=== PATIENT | male | born 1950 | race Caucasian/White ===

== ENCOUNTER 2017-10-27 11:45 | Inpatient (IN) | payer MEDICARE, MEDICAID ==
[~2017-10-27] VITALS: Ht 172.7 cm; Wt 112.0 kg
[~2017-10-27 11:45] MED LIST: ALBU2.5V38 IH; ASCO500T9 PO; BISA10SU12 RC; BRIM5DRO3 EACHEYE; BUME1TAB4 PO; DOCU-141 PO; FERR220S2 PO; FOLI1TAB16 PO; GUAI118S11 PO; HYDR-548 PO; IPRA0.2S6 NEB; LACT10SO7 PO; LEVO500T2 PO; MAGN355O3 PO; MAGN400O6 PO; METO25TA6 PO; MULT1TAB11 PO; NA P133E RC; NITR0.4T SL; NUTR1PAC14 PO; OMEP20TA20 PO; OXYC40TA34 PO; PEG15DRO5 EACHEYE; SPIR50TA PO; THIA100T13 PO; TIMO5DRO18 EACHEYE; VITA42.5 TP; WARF4TAB41 PO; ZINC220T PO; [UNRECOGNIZED DRUG - CODE] PO; [UNRECOGNIZED DRUG - OTHER] MC
[2017-10-27] MEDS ORDERED: IV NORMAL SALINE 1000 ML BAG IV ONE (12:00)
--- NOTE | 2017-10-27 12:30 | NUR ---
Pt out of ER for CT.
[2017-10-27 12:45] LABS: BASOPHILS # (AUTO) 0.1 K/uL (0.0-8.0); BASOPHILS % (AUTO) 0.8 % (0.0-2.0); EOSINOPHILS % (AUTO) 7.1 % (0.0-7.0); HEMATOCRIT 29.5 % (36.7-47.1); HEMOGLOBIN 8.7 g/dL (12.5-16.3); LYMPHOCYTES # (AUTO) 1.5 K/uL (20.0-40.0); LYMPHOCYTES % (AUTO) 11.1 % (20.5-51.5); MEAN CORPUSCULAR HEMOGLOBIN 21.7 uug (23.8-33.4); MEAN CORPUSCULAR HGB CONC 29 g/dL (32.5-36.3); MEAN CORPUSCULAR VOLUME 74.2 fL (73.0-96.2); MONOCYTES # (AUTO) 1.5 K/uL (2.0-10.0); MONOCYTES % (AUTO) 10.9 % (0.0-11.0); NEUTROPHILS # (AUTO) 9.4 K/uL (1.8-8.9); NEUTROPHILS % (AUTO) 70.1 % (38.5-71.5); PLATELET COUNT (AUTO) 572 K/uL (152-348); RED BLOOD CELL COUNT(AUTO) 3.98 MIL/uL (4.06-5.63); WHITE BLOOD COUNT (AUTO) 13.5 K/uL (3.6-10.2)
[2017-10-27 12:47] LABS: ETHANOL < 3 MG/DL (0-0)
[2017-10-27 13:00] LABS: CARBON DIOXIDE 34 mmol/L (21-32); CHLORIDE 99 mmol/L (98-107); CREATININE 0.5 mg/dL (0.6-1.3); GLUCOSE 156 mg/dL (74-106); POTASSIUM 3.6 mmol/L (3.5-5.1); UREA NITROGEN, BLOOD 10 mg/dL (7-18)
[2017-10-27 13:02] LABS: BASOPHILS % (MANUAL) 2 % (0-2); EOSINOPHILS % (MANUAL) 8 % (0-8); LYMPHOCYTES % (MANUAL) 13 % (20-40); MONOCYTES % (MANUAL) 10 % (2-10); NEUTROPHILS % (MANUAL) 67 % (42-75)
[2017-10-27 13:04] LABS: ALANINE AMINOTRANSFERASE 20 U/L (16-63); ALKALINE PHOSPHATASE 75 U/L (50-136); ASPARTATE AMINOTRANSFERASE 9 U/L (15-37); BILIRUBIN,DIRECT 0.1 mg/dL (0.0-0.2); BILIRUBIN,TOTAL 0.4 mg/dL (0.2-1.0); TOTAL PROTEIN, SERUM 7.7 g/dL (6.4-8.2)
[2017-10-27 13:05] LABS: ACETAMINOPHEN < 2.0 ug/mL (10-30)
--- NOTE | 2017-10-27 13:33 | NUR ---
Per Dr Hunter pt will be admitted to Dr Guadalupe.
[2017-10-27] MEDS ORDERED: BLOO-140 IN (13:38)
[2017-10-27] MEDS ORDERED: IPRA3AMP IH (13:38)
[2017-10-27] MEDS ORDERED: METF500T6 PO (13:38)
[2017-10-27] MEDS ORDERED: GABA-534 PO (13:38)
[2017-10-27] MEDS ORDERED: DOCU-141 PO (13:38)
[2017-10-27] MEDS ORDERED: MAGN400O6 PO (13:38)
[2017-10-27] MEDS ORDERED: PRED10TA PO (13:38)
[2017-10-27] MEDS ORDERED: ENOX40DI SQ (13:38)
[2017-10-27] MEDS ORDERED: BUDE0.5A4 IH (13:38)
[2017-10-27] MEDS ORDERED: LACT10SO PO (13:38)
[2017-10-27] MEDS ORDERED: PANT40TA4 PO (13:38)
[2017-10-27] MEDS ORDERED: INSU100V10 SQ (13:38)
[2017-10-27] MEDS ORDERED: MINE133E RC (13:38)
[2017-10-27] MEDS ORDERED: SUCR1ORA PO (13:38)
[2017-10-27] MEDS ORDERED: SOTA80TA PO (13:38)
[2017-10-27] MEDS ORDERED: OXYC-133 PO (13:38)
[2017-10-27] MEDS ORDERED: ACET325T53 PO (13:38)
[2017-10-27] MEDS ORDERED: OXYC40TA50 PO (13:38)
[2017-10-27] MEDS ORDERED: CLON1TAB4 PO (13:38)
[2017-10-27] MEDS ORDERED: MULT-213 PO (13:38)
[2017-10-27] MEDS ORDERED: LORA-259 PO (13:38)
[2017-10-27] MEDS ORDERED: FERR325T28 PO (13:38)
[2017-10-27] MEDS ORDERED: CHOL20004 PO (13:38)
--- NOTE | 2017-10-27 14:20 | NUR ---
aware of pt's arrival to the med-surg/tele floor. Tele monitor placed on the pt. O2 via NC. Pictures of lower extremities take. Body assessment done.
[2017-10-27 15:15] VITALS: BP 137/65
--- NOTE | 2017-10-27 15:15 | NUR ---
received pt via pia accompanied by one ER nurse. Pt is under no immediate s/s of SOB, pain, distress or discomfort. Pt is note to be mumbling and asking about whether he has pneumonia or not.
--- NOTE | 2017-10-27 15:15 | NUR ---
Pt. admitted to TELE , under care of ASSEMBLER BILLIARD TABLE MONICA Belongs List completed
[2017-10-27] MEDS ORDERED: ONDANSETRON 4 MG/2 ML VIAL IV PRN (16:45)
[2017-10-27] MEDS ORDERED: Z GUARD REMEDY PASTE 57 GM TUBE TOP PRN (16:45)
[2017-10-27] MEDS ORDERED: BISACODYL 10 MG SUPP.RECT RC PRN (16:45)
[2017-10-27] MEDS ORDERED: DEXTROSE 50% 50 ML DISP.SYRIN IV PRN (16:45)
[2017-10-27] MEDS: FERROUS SULFATE 325 MG TABEC PO SCH (17:00)
[2017-10-27] MEDS ORDERED: BRIMONIDINE-P 0.1% OPHTH DROP 5 ML DROPS EACHEYE SCH (17:00)
[2017-10-27] MEDS: BRIMONIDINE 0.2% OPHT DROP 10 ML BOTTLE EACHEYE SCH (17:30)
--- NOTE | 2017-10-27 17:30 | NUR ---
Pt refused to take take his iron, Metformin and eye drops. Pt states he is not diabetic. Pt requested OxyContin 40mg, lactulose and 2 Colace. aware, OxyContin is on hold as of right now. 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 Addendum: 10/27/17 at 1999 by KATHE KELLY RN Pt started to yell at me after telling him the his OxyContin is not authorized as of right now
[2017-10-27] MEDS: DOCUSATE SODIUM 100 MG CAPSULE PO SCH (17:38)
[2017-10-27] MEDS: GABAPENTIN 300 MG CAPSULE PO SCH (17:39)
[2017-10-27] MEDS: CLONAZEPAM 1 MG TABLET PO SCH (17:39)
[2017-10-27] MEDS: METFORMIN HCL 500 MG TABLET PO SCH (18:00)
--- NOTE | 2017-10-27 19:30 | NUR ---
Pt refused his dinner. Pt is sleeping upright with no immediate s/s of SOB, pain, distress or discomfort
[2017-10-27 19:43] VITALS: BP 152/59
[2017-10-27] MEDS: IV NS 1000 ML 1,000 ML IV PRN (20:33)
[2017-10-27] MEDS ORDERED: VANCOMYCIN IV 1 G in PREMIXED 0 EACH IV ONE (20:45)
[2017-10-27] MEDS ORDERED: HYDROCODONE/APAP 10-325 MG TABLET PO PRN (20:45)
[2017-10-27] MEDS ORDERED: CEFTRIAXONE 1 G VIAL IV SCH (20:45)
--- NOTE | 2017-10-27 20:54 | NUR ---
Received patient in bed pleasantly confused no SOB c/o gen pain. Patient is warm to touch, febrile w/ temp 100.1 F. Called & notified [facility] MD on-call, Dr. Sam Bravo. Orders received & carried out. Repeat blood culture x 2 was ordered. Vancomycin & Rocephin IV antibiotic to be infused once available.
[2017-10-27] MEDS ORDERED: INSULIN DETEMIR 300 UNIT/3 ML CARTRIDGE SQ SCH (21:00)
[2017-10-27] MEDS: LACTULOSE 20 G/30 ML LIQUID UDC PO SCH (21:05)
[2017-10-27] MEDS: BLOOD SUGAR DIAGNOSTIC 1 EACH STRIP VI SCH (21:12)
[2017-10-27] MEDS: INSULIN GLARGINE,HUM 300 UNITS/3 ML CARTRIDGE SQ SCH (21:14)
[2017-10-27] MEDS: BUDESONIDE 0.5 MG/2 ML NEBU IH SCH (21:15)
[2017-10-27] MEDS: ENOXAPARIN SODIUM 40 MG/0.4 ML DISP.SYRIN SQ SCH (21:16)
--- NOTE | 2017-10-27 21:21 | NUR ---
Awaiting for blood culture to be done, patient is hard stick.
[2017-10-27] MEDS ORDERED: BUDESONIDE 0.5 MG/2 ML NEBU ONE (22:06)
[2017-10-27] MEDS: CEFTRIAXONE 1 G in IV DEXTROSE 5% 50 ML IV SCH (22:19)
--- NOTE | 2017-10-27 22:30 | NUR ---
IVF NS at 75 ml/hr started as ordered. Right wrist heplock patent no sign of infiltration. Noted distended bladder, patient awake at this time & agitated. Instructed to urinate, patient voided 600 ml. Jaqui-anal care provided & repositioned in bed. Urine sample sent to the lab for UA C&S. Blood culture x 2 done. Tylenol 650 mg po given for fever. Obion tablet not administered, patient spit it out. Patient stated he takes Oxycontin 40 mg po every 6 hrs PRN and Percocet tab every 4 hrs PRN. Paged MD configuration management analyst for patient's preferred pain meds. Sinus tach on the monitor HR 106.
[2017-10-27 23:11] LABS: *BLOOD, URINE NEGATIVE (NEGATIVE); *CLARITY,URINE CLEAR (CLEAR); *COLOR,URINE YELLOW (YELLOW); *KETONES,URINE 4+ (NEGATIVE); *PROTEIN,URINE NEGATIVE (NEGATIVE); *UROBILINOGEN,URINE 0.2 E.U./dl (NORMAL); LEUKOCYTE ESTERASE ,URINE NEGATIVE (NEGATIVE); NITRITE, URINE NEGATIVE (NEGATIVE); UGLUCOSE NEGATIVE (NEGATIVE)
[2017-10-27 23:19] LABS: *BILIRUBIN,URIN 1+ (NEGATIVE)
--- NOTE | 2017-10-27 23:20 | NUR ---
Rocephin 1 gm & Vancomycin completed, patient tolerated.
[2017-10-27 23:24] LABS: BACTERIA,URINE NONE SEEN /HPF (NONE SEEN); COARSE GRANULAR CASTS,URINE 0-3 /LPF; MUCUS,URINE FEW /LPF (0-FEW); RBC,URINE 0-3 /HPF (0-3); SQUAMOUS EPITHELIAL CELL,UR FEW /HPF (NONE SEEN)
[2017-10-27 23:28] LABS: *AMPHETAMINE, URINE NEGATIVE (NEGATIVE); *BARBITURATE, URINE NEGATIVE (NEGATIVE); *CANNABINOID, URINE NEGATIVE (NEGATIVE); *COCCAINE, URINE NEGATIVE (NEGATIVE); *OPIATE, URINE POSITIVE (NEGATIVE); *PHENCYCLIDINE SCREEN,URINE NEGATIVE (NEGATIVE)
--- NOTE | 2017-10-28 01:00 | NUR ---
Resting comfortably, arousable, easily get upset to staff & verbally abusive. Sinus tach w/ PACs on the monitor. Kept bilateral leg elevated on a pillow.
[2017-10-28 03:42] VITALS: BP 126/65
--- NOTE | 2017-10-28 03:44 | NUR ---
Fully awake alert & oriented, patient demanding his Oxycontin & Percocet pain pill. Patient continuos to refuse [place] pain medication. Explained to patient that those meds were temporarily held by . Patient is verbally abusive threatens the staff that he wont stop screaming until he gets his Oxycontin. Tele sinus rhythm 90s w/ PACs. Paged EPIC cook mayonnaise for orders.
[2017-10-28] MEDS ORDERED: OXYCODONE HCL 40 MG TAB.SR.12H PO SCH (04:00)
--- NOTE | 2017-10-28 04:05 | NUR ---
DR ROLLY SALAS MD MEDICATION SPECIALIST CALLED BACK. RECEIVED ORDERS, TO RESUME BACK OXYCONTIN 40 MG Q12H PRN AND PERCOCET 10/325MG Q6H PRN. READ BACK AND VERIFIED ORDERS.
[2017-10-28] MEDS: PANTOPRAZOLE SODIUM 40 MG TABLET.DR PO SCH (06:28)
[2017-10-28] MEDS: BLOOD SUGAR DIAGNOSTIC 1 EACH STRIP VI SCH ×4 (07:08→21:57)
--- NOTE | 2017-10-28 07:20 | NUR ---
patient alert and awake, no sob, denies chest pain. on tele sinus rhythm with PACs, HR of 94. safety measures maintained at all times.
[2017-10-28] MEDS: INSULIN REGULAR, HUMAN 300 UNIT/3 ML VIAL SQ SCH ×3 (07:30→16:13)
[2017-10-28] MEDS: BUDESONIDE 0.5 MG/2 ML NEBU IH SCH ×3 (07:30→19:22)
[2017-10-28] MEDS ORDERED: INSULIN LISPRO 1000 UNITS/10 ML VIAL(HUMALOG) SQ SCH (07:30)
[2017-10-28 07:54] LABS: BASOPHILS # (AUTO) 0.2 K/uL (0.0-8.0); BASOPHILS % (AUTO) 2.2 % (0.0-2.0); EOSINOPHILS # (AUTO) 1.1 K/uL (0.0-0.7); EOSINOPHILS % (AUTO) 11.3 % (0.0-7.0); HEMOGLOBIN 7.7 g/dL (12.5-16.3); LYMPHOCYTES # (AUTO) 1.5 K/uL (20.0-40.0); MEAN CORPUSCULAR HEMOGLOBIN 22.4 uug (23.8-33.4); MEAN CORPUSCULAR HGB CONC 31 g/dL (32.5-36.3); MEAN CORPUSCULAR VOLUME 72.3 fL (73.0-96.2); MONOCYTES # (AUTO) 1.1 K/uL (2.0-10.0); MONOCYTES % (AUTO) 11.1 % (0.0-11.0); NEUTROPHILS # (AUTO) 5.9 K/uL (1.8-8.9); NEUTROPHILS % (AUTO) 60.4 % (38.5-71.5); PLATELET COUNT (AUTO) 575 K/uL (152-348); RED BLOOD CELL COUNT(AUTO) 3.45 MIL/uL (4.06-5.63); WHITE BLOOD COUNT (AUTO) 9.8 K/uL (3.6-10.2)
[2017-10-28] MEDS: METFORMIN HCL 500 MG TABLET PO SCH ×3 (08:00→17:04)
[2017-10-28 08:27] LABS: ALANINE AMINOTRANSFERASE 16 U/L (16-63); ALKALINE PHOSPHATASE 62 U/L (50-136); ASPARTATE AMINOTRANSFERASE 7 U/L (15-37); BILIRUBIN,TOTAL 0.4 mg/dL (0.2-1.0); CARBON DIOXIDE 34 mmol/L (21-32); CHLORIDE 102 mmol/L (98-107); CHOLESTEROL 151 mg/dL (<200); CREATININE 0.4 mg/dL (0.6-1.3); GLUCOSE 119 mg/dL (74-106); HDL CHOLESTEROL 48 mg/dL (40-60); MAGNESIUM 1.6 mg/dL (1.8-2.4); PHOSPHOROUS 3.2 mg/dL (2.5-4.9); POTASSIUM 3.4 mmol/L (3.5-5.1); TOTAL PROTEIN, SERUM 6.3 g/dL (6.4-8.2); TRIGLYCERIDES 136 MG/DL (30-150); UREA NITROGEN, BLOOD 7 mg/dL (7-18)
[2017-10-28 08:34] LABS: THYROID STIMULATING HORMONE 1.135 mIU/mL (0.358-3.740)
[2017-10-28] MEDS: GABAPENTIN 300 MG CAPSULE PO SCH ×2 (08:38→16:18)
[2017-10-28] MEDS: DOCUSATE SODIUM 100 MG CAPSULE PO SCH ×2 (08:39→16:17)
[2017-10-28] MEDS: FERROUS SULFATE 325 MG TABEC PO SCH ×3 (08:39→16:13)
[2017-10-28] MEDS: predniSONE 10 MG TABLET PO SCH (08:40)
[2017-10-28] MEDS: SOTALOL HCL 80 MG TABLET PO SCH (08:40)
[2017-10-28] MEDS: CLONAZEPAM 1 MG TABLET PO SCH ×2 (08:40→16:18)
[2017-10-28] MEDS: LACTULOSE 20 G/30 ML LIQUID UDC PO SCH ×2 (08:41→21:00)
[2017-10-28] MEDS: BRIMONIDINE 0.2% OPHT DROP 10 ML BOTTLE EACHEYE SCH ×4 (08:42→16:13)
--- NOTE | 2017-10-28 09:03 | NUR ---
Pt has refused his scheduled 5 units of Humulin R and eye drops stating that the 125 AM BS does not need coverage and that he doesn't not use eye drops anymore Addendum: 10/28/17 at 0921 by KATHE KELLY RN Pt also refused iron, metformin, sotalol
--- NOTE | 2017-10-28 09:23 | NUR ---
Pt has requested to have his OxyContin to be rescheduled at 6am and 6pm, pharmacy aware. Pt has requested to talk to dietary, lead applications developer aware. Pt has requested to talk to case managementQuita
[2017-10-28 10:12] LABS: EOSINOPHILS % (MANUAL) 10 % (0-8); LYMPHOCYTES % (MANUAL) 16 % (20-40); MONOCYTES % (MANUAL) 12 % (2-10)
[2017-10-28 10:13] LABS: BASOPHILS % (MANUAL) 1 % (0-2); NEUTROPHILS % (MANUAL) 61 % (42-75)
--- NOTE | 2017-10-28 10:46 | NUR ---
Informed per [facility] physical therapist that pt refused PT evaluation 3 times today. Pt will try again tomorrow.
--- NOTE | 2017-10-28 11:09 | NUR ---
Echo done. 75% EF
[2017-10-28] MEDS: OXYCODONE/APAP 5-325 MG TABLET PO PRN ×2 (11:14→21:50)
--- NOTE | 2017-10-28 11:16 | NUR ---
Pt. is stating that I am giving him Tylenol instead Percocet. Charge nurse informed to witness the correct medication was given.
--- NOTE | 2017-10-28 11:26 | NUR ---
Pt is stating that he needs an exact time when case management can come and see him. Radha was informed and will be in his room in 5 minutes. Pt is requesting that the DrWalter be informed that he need and enema PRN. I will reach out to the doctor and follow up with pt.'s request christian.
[2017-10-28 11:35] VITALS: BP 130/58
[2017-10-28] MEDS: IV NS 1000 ML 1,000 ML IV PRN (12:16)
[2017-10-28] MEDS: INSULIN REGULAR, HUMAN 300 UNIT/3 ML VIAL SQ PRN ×2 (12:25→16:53)
--- NOTE | 2017-10-28 12:28 | NUR ---
Pt refused scheduled 5 unites of Humulin but agreed to the 3units of [facility] PRN Humulin insulin. Pt also refused his scheduled eye drops and stated he want to see an manager cleaning before he continues the eye drops
[2017-10-28] MEDS ORDERED: FLEET ENEMA 133 ML BOTTLE RC PRN (13:00)
[2017-10-28] MEDS ORDERED: POTASSIUM CHLORIDE 20 MEQ TAB.PRT.SR PO ONE (14:30)
[2017-10-28] MEDS: MAGNESIUM SULFATE/D5W 100 ML IV SCH ×2 (14:30→15:30)
--- NOTE | 2017-10-28 14:30 | NUR ---
WOUND CARE CONSULT: LIMITED ASSESSMENT DUE TO PT ALLOWED ONLY LOWER EXTREMITY ASSESSMENT. LOWER EXTREMITIES PRESENT WITH RASH/LESIONS UNKNOWN ORIGIN. DEFER TO MD/DNP. PER NURSING STAFF DOCUMENTATION PT HAS EXCORIATION, INCONTINENCE ASSOCIATED SKIN DAMAGE TO BUTTOCKS, PRESENT ON ADMISSION. RECOMMENDATIONS MADE BASED ON PHOTO DOCUMENTATION AND NURSING REPORT. FIRST STEP MATTRESS ORDERED PREVIOUSLY. WILL SEE PRN. IN AGREEMENT WITH PLAN OF CARE. Addendum: 10/28/17 at 1432 by GREGORIA AMADOR RN Amended: Links added.
--- NOTE | 2017-10-28 15:34 | NUR ---
Explained to the pt about replacing his Potassium and Mag levels with PO Klor-Con and IV Mag-Sulfate. Pt refused. I offered and explain the risks and benefits, offered 3 times and pt got upset and still refused. Will inform MD. Pt wants me to inform case management that he wishes to speak to them and requests to see the dietitian. Will inform both parties
--- NOTE | 2017-10-28 15:38 | NUR ---
Informed by charge nurse that pt is MRSA of the nares
[2017-10-28 15:44] VITALS: BP 111/64
--- NOTE | 2017-10-28 15:58 | NUR ---
Dietary aware of pt's request for consult. Case management aware the pt is requesting to see her. Dr informed of the pt.'s refusal of certain medications. Pt has refused his mag-sulfate. is also aware of positive MRSA of the nares with orders for Bactroban BID
[2017-10-28] MEDS: ACETAMINOPHEN 325 MG TABLET PO PRN (16:18)
--- NOTE | 2017-10-28 16:29 | NUR ---
Dietary consult took place. Pt c/o of mechanical soft diet texture and is requesting a regular texture diet. Pt has no teeth and pt has no dentures. aware of both concerns
--- NOTE | 2017-10-28 16:42 | NUR ---
Pt requested to be seen by HUDSON. Pt requesting to upgrade diet to regular texture stating that he is able to chew food even though he has edentulism. RD explained to pt that it is for his safety and that is the diet his MD ordered. Pt requested to have RD and RN ask the physician for approval. Recommend monitor for tolerance if diet upgraded. Addendum: 10/28/17 at [address] Amended: Links added.
[2017-10-28] MEDS: OXYCODONE HCL 40 MG TAB.SR.12H PO SCH (17:04)
--- NOTE | 2017-10-28 17:48 | NUR ---
has given the okay to have the pt under a regular texture CCHO diet, as requested by the patient.
[2017-10-28 19:00] VITALS: BP 112/58
[2017-10-28] MEDS: INSULIN GLARGINE,HUM 300 UNITS/3 ML CARTRIDGE SQ SCH ×2 (21:00→21:59)
[2017-10-28] MEDS: MUPIROCIN 2% OINT 22 GM TUBE NS SCH (21:51)
[2017-10-28] MEDS: CEFTRIAXONE 1 G in IV DEXTROSE 5% 50 ML IV SCH (21:55)
[2017-10-28] MEDS: ENOXAPARIN SODIUM 40 MG/0.4 ML DISP.SYRIN SQ SCH (21:59)
--- NOTE | 2017-10-28 22:00 | NUR ---
PT REFUSED ROUTINE HS LANTUS AND LACTULOSE. BLOOD SUGAR NOTED 151. NO S/S OF HYPER/HYPOGLYCEMIA. WILL CONTINUE TO MONITOR.
--- NOTE | 2017-10-28 23:28 | NUR ---
PT IN ROOM ALERT AWAKE IN NO RESP DISTRESS. ABLE TO MAKE NEEDS KNOWN. CLEANING ATTENDANT SHOWING SINUS RHYTHM. MAINTAINING OXYGEN AT 2L/MIN VIA N/C WITH 95% O2 SAT. PT CONTINUING CONTACT ISOLATION FOR MRSA NARES. WILL CONTINUE TO MONITOR. HOB ELEVATED 30 DEGREES.
[2017-10-29] VITALS: BP 117/56
[2017-10-29] MEDS: ACETAMINOPHEN 325 MG TABLET PO PRN ×2 (02:26→13:51)
[2017-10-29 04:00] VITALS: BP 121/56
[2017-10-29] MEDS: OXYCODONE HCL 40 MG TAB.SR.12H PO SCH (05:08)
[2017-10-29] MEDS: IV NS 1000 ML 1,000 ML IV PRN (05:14)
--- NOTE | 2017-10-29 06:00 | NUR ---
PT ALERT AWAKE IN NO RESP DISTRESS. NO ADVERSE REACTION TO RECENT ROCEPHIN ATB IV THERAPY. WEAVING INSTRUCTOR SHOWING SINUS RHYTHM WITH PERIODS OF PVCS. MAINTAINING OXYGEN AT 2L/MIN. PT REPOSITIONED AND REMAINED CONTACT ISOLATION. WILL CONTINUE TO MONITOR.
[2017-10-29 06:01] LABS: BASOPHILS # (AUTO) 0.1 K/uL (0.0-8.0); BASOPHILS % (AUTO) 1.3 % (0.0-2.0); EOSINOPHILS # (AUTO) 0.7 K/uL (0.0-0.7); EOSINOPHILS % (AUTO) 9.6 % (0.0-7.0); HEMATOCRIT 24.7 % (36.7-47.1); HEMOGLOBIN 7.5 g/dL (12.5-16.3); LYMPHOCYTES # (AUTO) 1.4 K/uL (20.0-40.0); MEAN CORPUSCULAR HEMOGLOBIN 22.4 uug (23.8-33.4); MEAN CORPUSCULAR HGB CONC 30 g/dL (32.5-36.3); MEAN CORPUSCULAR VOLUME 73.8 fL (73.0-96.2); MONOCYTES # (AUTO) 1.1 K/uL (2.0-10.0); MONOCYTES % (AUTO) 15.5 % (0.0-11.0); NEUTROPHILS % (AUTO) 54.6 % (38.5-71.5); PLATELET COUNT (AUTO) 538 K/uL (152-348); RED BLOOD CELL COUNT(AUTO) 3.35 MIL/uL (4.06-5.63); WHITE BLOOD COUNT (AUTO) 7.4 K/uL (3.6-10.2)
[2017-10-29 06:12] LABS: CARBON DIOXIDE 38 mmol/L (21-32); CHLORIDE 103 mmol/L (98-107); CREATININE 0.4 mg/dL (0.6-1.3); GLUCOSE 137 mg/dL (74-106); MAGNESIUM 1.7 mg/dL (1.8-2.4); PHOSPHOROUS 3.5 mg/dL (2.5-4.9); POTASSIUM 3.7 mmol/L (3.5-5.1); UREA NITROGEN, BLOOD 5 mg/dL (7-18)
[2017-10-29] MEDS: PANTOPRAZOLE SODIUM 40 MG TABLET.DR PO SCH (06:20)
[2017-10-29] MEDS: BLOOD SUGAR DIAGNOSTIC 1 EACH STRIP VI SCH ×2 (06:30→12:01)
[2017-10-29] MEDS: BUDESONIDE 0.5 MG/2 ML NEBU IH SCH (07:25)
[2017-10-29] MEDS: METFORMIN HCL 500 MG TABLET PO SCH ×2 (08:00→08:29)
[2017-10-29 08:01] LABS: NEUTROPHILS % (MANUAL) 60 % (42-75)
[2017-10-29 08:02] LABS: EOSINOPHILS % (MANUAL) 8 % (0-8); LYMPHOCYTES % (MANUAL) 20 % (20-40); MONOCYTES % (MANUAL) 12 % (2-10)
[2017-10-29] MEDS: INSULIN REGULAR, HUMAN 300 UNIT/3 ML VIAL SQ SCH ×2 (08:28→12:05)
[2017-10-29] MEDS: INSULIN REGULAR, HUMAN 300 UNIT/3 ML VIAL SQ PRN (08:28)
[2017-10-29] MEDS: MUPIROCIN 2% OINT 22 GM TUBE NS SCH (08:30)
[2017-10-29] MEDS: BRIMONIDINE 0.2% OPHT DROP 10 ML BOTTLE EACHEYE SCH ×2 (08:30→12:35)
[2017-10-29] MEDS: LACTULOSE 20 G/30 ML LIQUID UDC PO SCH (08:31)
[2017-10-29] MEDS: SOTALOL HCL 80 MG TABLET PO SCH (08:31)
[2017-10-29] MEDS: FERROUS SULFATE 325 MG TABEC PO SCH (08:31)
[2017-10-29] MEDS: DOCUSATE SODIUM 100 MG CAPSULE PO SCH (08:31)
[2017-10-29] MEDS: predniSONE 10 MG TABLET PO SCH (08:32)
[2017-10-29] MEDS: CLONAZEPAM 1 MG TABLET PO SCH (08:32)
[2017-10-29] MEDS: GABAPENTIN 300 MG CAPSULE PO SCH (08:32)
[2017-10-29] MEDS: OXYCODONE/APAP 5-325 MG TABLET PO PRN (09:28)
[2017-10-29] MEDS ORDERED: MAGNESIUM SULFATE/D5W 100 ML IV SCH (15:00)
[2017-10-29] MEDS ORDERED: MAGNESIUM OXIDE 400 MG TABLET PO ONE (15:30)
--- NOTE | 2017-10-29 16:18 | NUR ---
PATIENT WAS GIVEN DISCHARGE INSTRUCTIONS, IV REMOVED, REPORT CALLED TO VICKIE, PATIENT BEING TRANSPORTED BY EMS, TO [facility].
== END 2017-10-29 16:30 | DRG 91 ==
LOC: ER 11:49 → TELE 14:38
PROVIDERS: ADMIT Nurse Practitioner Acute Care; ATTEND Nurse Practitioner Acute Care
DX: G92 Toxic encephalopathy (principal); J18.9 Pneumonia, unspecified organism; I50.32 Chronic diastolic (congestive) heart failure; J44.0 Chronic obstructive pulmonary disease with (acute) lower respiratory infection; D68.59 Other primary thrombophilia; T40.605A Adverse effect of unspecified narcotics, initial encounter; Y92.129 Unspecified place in nursing home as the place of occurrence of the external cause; D63.8 Anemia in other chronic diseases classified elsewhere; I11.0 Hypertensive heart disease with heart failure; Z99.81 Dependence on supplemental oxygen; G89.4 Chronic pain syndrome; K21.0 Gastro-esophageal reflux disease with esophagitis; I48.91 Unspecified atrial fibrillation; Z88.0 Allergy status to penicillin; Z79.01 Long term (current) use of anticoagulants; Z96.41 Presence of insulin pump (external) (internal); H40.9 Unspecified glaucoma; Z79.4 Long term (current) use of insulin; N40.1 Benign prostatic hyperplasia with lower urinary tract symptoms; N39.498 Other specified urinary incontinence; C61 Malignant neoplasm of prostate; D69.6 Thrombocytopenia, unspecified; E11.9 Type 2 diabetes mellitus without complications; F17.210 Nicotine dependence, cigarettes, uncomplicated; F41.9 Anxiety disorder, unspecified
CPT/HCPCS: 36415; 70030-TC; 70450; 71045; 80307; 83605; 83735; 84100; 84443; 85025; 85730; 87040; 87086; 93005; 93307; 94664; A4663; G0480; G0480-TC; J0696; J1650; J1815; J3370; J7030; J7060; J7512